=== PATIENT | female | born 1990 | race Caucasian/White ===

== ENCOUNTER 2017-06-10 19:23 | Emergency (ER) | payer BC, OTHER ==
[~2017-06-10 19:23] MED LIST: CIPR500T4 PO; LOESTAB PO; OXYB5 PO; OXYC-360 PO; PROM25SU8 PO; PYRI200T4 PO; TAMS5CAP PO
[2017-06-10] MEDS ORDERED: DICL500 PO (20:20)
--- NOTE | 2017-06-10 20:20 | PD ---
HPI Chief Complaint Right breast pain and fever 101 at home Date Seen: Jun 10, 2017 Travel History International Travel<30 Days: No Contact w/Intl Traveler<30Days: No Known Affected Area: No History of Present Illness HPI Patient is 27-year-old white female at [address] Weber's who presents complaining of of fever at home of 101, she also has had a 2 day history of the right breast pain swelling and redness. He saw Dr. Weber yesterday for this problem and the was evaluated and not treated with antibiotic at that time. Her baby is active heart rate tracing is reactive for 23 weeks and no contractions Para: 0 : 1 History Social History Alcohol Use: No Tobacco Use: No Substance Abuse: No Allergies-Medications (Allergen,Severity, Reaction): Coded Allergies: No Known Allergies (Unverified , 12/28/12) Home Meds Active Scripts Dicloxacillin 500 Mg [id number] Mg PO QID #30 CAP Ref 0 Prov:Mihai Roland II, MD 06/10/17 Oxycodone/Acetaminophen (Percocet)5 Mg/325 Mg Tab1-2 Tab PO Q4-6HPRN #20 FOR PAIN Prov:Courtney Epps MD 12/23/12 Promethazine Hcl 25 Mg Tab25 Mg PO Q6HPRN #10 FOR NAUSEA/VOMITING Prov:Courtney Epps MD 12/23/12 Reported Medications Oxybutynin Chloride (Ditropan 5 Mg Tab)5 Mg Tab5 Mg PO TID for bladder spasms 12/29/12 Phenazopyridine Hcl (Pyridium)200 Mg [id number] Mg PO TID #30 for discomfort on voiding 12/29/12 Ciprofloxacin Hcl (Cipro)500 Mg Gym530 Mg PO BID #20 12/29/12 Tamsulosin Hcl (Flomax)0.4 Mg Cap0.4 Mg PO DAILY 12/28/12 Norethin Acet & Estrad-Fe (Loestrin 24 Fe)28 Tab Pack1 Tab PO DAILY 12/17/12 Review of Systems General / Constitutional: Fever, No: Weight Gain, Chills, Other Eyes: No: Diploplia, Blurred Vision, Visual changes, Pain, Photophobia HENT: No: Headaches, Vertigo, Lightheadedness Cardiovascular: No: Irregular Rhythm, Chest Pain or Discomfort, Palpitations, Tachycardia, Syncope, Varicosities, Edema, Cyanosis Respiratory: No: Cough, Short of Breath, Other Gastrointestinal: No: Nausea, Vomiting, Diarrhea Genitourinary: No: Decreased Urinary Output, Oliguria Musculoskeletal: No: Limited ROM, Weakness, Cramping, Edema, Pain Skin: No Rash, No Itching, No Dryness, No Lumps, No Change in Pigmentation, No Change in Nails, No Alopecia, No Lesions Neurologic: No: Weakness, Dizziness, Syncope, Focal Abnormalities, Coordination Problem, Headache, Slurred Speech, Seizures Psychiatric: No: Depression, Suicidal Ideations, Homicidal Ideation Endocrine: No: Heat Intolerance, Cold Intolerance, Polydipsia, Polyuria, Other Physical Exam Narrative GENERAL: Well-nourished, well-developed patient. SKIN: Warm and dry. HEAD: Normocephalic and atraumatic. EYES: No scleral icterus. No injection or drainage. ENT: No nasal drainage noted. Mucous membranes pink. Airway patent. NECK: Supple, trachea midline. No JVD. CARDIOVASCULAR: Regular rate and rhythm without murmurs, gallops, or rubs. RESPIRATORY: Breath sounds equal bilaterally. No accessory muscle use. BREASTS: Bilateral exam showed no masses , no retractions, no nipple discharge. + erythema and tenderness of R breast , ABDOMEN/GI: Abdomen soft, non-tender, bowel sounds present, no rebound, no guarding Gravid to [-23] weeks size Fundal Height: [-23] GENITOURINARY: Membranes: [intact ] Uterine Contractions: [none-] FHT's: Category: [1-] Baseline: [-133] Reactive: [yes-] Variability: [-mod] Decels: [-none] EXTREMITIES: No cyanosis or edema. BACK: Nontender without obvious deformity. No CVA tenderness. NEUROLOGICAL: Awake and alert. Motor and sensory grossly within normal limits. Five out of 5 muscle strength in all muscle groups. Normal speech. Data Data Orders Vital Signs (Adult) .ON ADMISSION (06/10/17 19:54) ^ Labor Status (06/10/17 19:54) Urinalysis - C+S If Indicated (06/10/17 19:54) Complete Blood Count With Diff (06/10/17 19:55) MDM Interpretation(s) Patient is a 27-year-old white female at [address] Weber for care. She presents with fever at home and they will 101. She also complains of right breast pain swelling redness and on exam the right breast is swollen pink erythema around laterally and superiorly and its 1-2+ tender. No nipple discharge could be expressed, the breast is very firm dense tissue but obviously the source of infection and inflammation and this would be consistent with right breast mastitis Plan Plan to begin the patient on oral dicloxacillin 500 mg 4 times a day continue this for 7 day course and she needs to be seen Dr. Weber and brought to 48 hours to make sure she is somewhat improved. iF she is worsened spiking higher fevers she needs to come in for IV antibiotic inpatient care. Care should be taken to avoid breast abscess in a patient like this and so that type of worsening needs to also be watched for Diagnosis Diagnosis: Primary Impression: Mastitis of right breast unrelated to of Additional Impression: 23 weeks gestation of Disposition: 01 DISCHARGE HOME Condition: Stable Scripts Dicloxacillin 500 Mg Urp084 Mg PO QID #30 CAP Ref 0 Prov:Mihai Roland II, MD 06/10/17 Mihai Roland II, MD Jun 10, 2017 20:20
[2017-06-10 20:38] LABS: AUTOMATED NEUTROPHIL # 11.8 TH/MM3 (1.8-7.7); BASOPHIL % 0.2 % (0.0-2.0); EOSINOPHIL # 0.1 TH/MM3 (0-0.4); EOSINOPHIL % 0.4 % (0.0-4.0); HEMATOCRIT 28.1 % (35.0-46.0); HEMO FLAGS DIFF FINAL; LYMPH % 11.9 % (9.0-44.0); LYMPHOCYTE # 1.7 TH/MM3 (1.0-4.8); MEAN CELL VOLUME 90.3 FL (80.0-100.0); MEAN CORPUSCULAR HEMOGLOBIN 30.1 PG (27.0-34.0); MEAN CORPUSCULAR HGB CONC 33.3 % (32.0-36.0); MONO % 7.6 % (0.0-8.0); NEUT % 79.9 % (16.0-70.0); PLATELET COUNT 204 TH/MM3 (150-450); RED BLOOD COUNT 3.11 MIL/MM3 (4.00-5.30); WHITE BLOOD COUNT 14.7 TH/MM3 (4.0-11.0)
[2017-06-10 21:09] LABS: BACTERIA, URINE RARE /hpf; BLOOD, URINE NEG (NEG); COMMENT (UR) CULT NOT INDICATED; CULTURE IF INDICATED CULT NOT INDICATED; GLUCOSE,URINE NEG (NEG); KETONE, URINE NEG (NEG); NITRITE,URINE NEG (NEG); SQUAMOUS EPITHELIAL CELL URINE 2 /hpf (0-5); URINE COLOR YELLOW (YELLW/STRAW)
== END 2017-06-10 20:57 | disposition home or self-care (01) ==
LOC: HOBED 19:23
DX: N64.4 Mastodynia (principal); Z3A.23 23 weeks gestation of pregnancy
CPT/HCPCS: 36415; 81001; 85025; 99283

== ENCOUNTER 2017-08-12 11:47 | Emergency (ER) | payer OTHER ==
[~2017-08-12] VITALS: Ht 170.2 cm; Wt 76.0 kg
[~2017-08-12 11:47] MED LIST changes: +DICL500 PO
[2017-08-12 11:48] VITALS: BP 110/70; PULSE 105; RESP 20; TEMP 98.6; O2SAT 100
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
--- NOTE | 2017-08-12 14:09 | RADRPT ---
EXAM DATE/TIME: 08/12/2017 13:44 [facility] COMPARISON: No previous studies available for comparison. INDICATIONS : Short of breath, 33 weeks MEDICAL HISTORY : diagnosed with asthma 3 years ago after fume exposure. SURGICAL HISTORY : None. ENCOUNTER: Initial ACUITY: 1 day PAIN SCORE: 0/10 LOCATION: Bilateral chest FINDINGS: A single view of the chest demonstrates the lungs to be symmetrically aerated without evidence of mas s, infiltrate or effusion. The cardiomediastinal contours are unremarkable. Osseous structures are intact. CONCLUSION: No acute disease. Jonathan Hopkins MD FACR on August 12, 2017 at 14:07 Board Certified Radiologist. This report was verified electronically.
== END 2017-08-12 14:33 | disposition home or self-care (01) ==
LOC: NEPD 11:47
DX: O26.893 Other specified pregnancy related conditions, third trimester (principal); J45.909 Unspecified asthma, uncomplicated; R06.02 Shortness of breath
CPT/HCPCS: 71010; 99283

== ENCOUNTER 2017-08-13 21:13 | Emergency (ER) | payer OTHER, BC ==
[2017-08-13] VITALS (15 sets, daily range): PULSE 85–107; RESP 18
--- NOTE | 2017-08-13 22:55 | PD ---
HPI Chief Complaint sob, syncopal episode Date Seen: Aug 13, 2017 Time Seen: 22:30 Travel History International Travel<30 Days: No Contact w/Intl Traveler<30Days: No History of Present Illness HPI Pt is a 27 y/o G1 with IUP at 32.5 weeks who presents for evaluation after syncopal episode at home. Pt states she was at work yesterday and felt SOB, felt like she couldn't take a deep enough breath. Pt states this has happened before during but this episode persisted longer than normal, so she left work at came to ED. PT evaluated in main ED and had pulse ox 100%, normal vitals, and neg CXR. Pt d/c home and states her SOB has persisted but not worsened. Pt states she is measuring large for dates and thinks her SOB may be secondary to this. Pt saw Dr. Weber in office today and was prescribed an inhaler, but she has not picked up yet. She also advised to be on bedrest x 1 week. Vitals wnl in office today as well. Pt reports her mother has h/o sinus tachycardia and syncope during . This evening, pt states she was feeling well and went outside to talk with her family. She states she was standing in the yard for about 30 minutes and decided to go lie down. Pt states she went to restroom and when she got up, she felt hot. She sat down on the bed and then felt nauseated. PT's attempted to help her to the bathroom but she passed out on the way. she then vomited x 1. PT states she does not feel dizzy or nauseated now, but still feels same SOB. She thinks she may have felt some palpitations on the way to hospital but denies now. She denies chest pain. She reports mild headache currently. She denies dysuria, fever, vag bleeding, contractions. She has mild pelvic pressure. Has URI about 1-2 weeks ago, but symptoms have resolved. Weeks Gestation: 32 Para: 0 : 1 History Past Medical History Narrative Medical mastitis, nephrolithiasis Obstetric History Obstetric History G1 Past Surgical History Narrative Surgical knee surgery, lithotripsy Family History Family History: Negative Social History Alcohol Use: No Tobacco Use: No Substance Abuse: No Allergies-Medications (Allergen,Severity, Reaction): Coded Allergies: No Known Allergies (Unverified , 12/28/12) Home Meds Active Scripts Dicloxacillin (Dicloxacillin) 500 Mg Cap, 500 MG PO QID for Infection, #30 CAP 0 Refills Prov:Mihai Roland II, MD 06/10/17 Oxycodone/Acetaminophen (Percocet) 5 Mg/325 Mg Tab, 1 - 2 TAB PO Q4-6HPRN, #20 FOR PAIN Prov:Courtney Epps MD 12/23/12 Promethazine Hcl (Promethazine Hcl) 25 Mg Tab, 25 MG PO Q6HPRN, #10 FOR NAUSEA/VOMITING Prov:Courtney Epps MD 12/23/12 Reported Medications Oxybutynin Chloride (Ditropan 5 Mg Tab) 5 Mg Tab, 5 MG PO TID for bladder spasms 12/29/12 Phenazopyridine Hcl (Pyridium) 200 Mg Tab, 200 MG PO TID, #30 for discomfort on voiding 12/29/12 Ciprofloxacin Hcl (Cipro) 500 Mg Tab, 500 MG PO BID, #20 12/29/12 Tamsulosin Hcl (Flomax) 0.4 Mg Cap, 0.4 MG PO DAILY 12/28/12 Norethin Acet & Estrad-Fe (Loestrin 24 Fe) 28 Tab Pack, 1 TAB PO DAILY 12/17/12 Review of Systems General / Constitutional: No: Fever, Weight Gain, Weight Loss, Chills, Other Eyes: No: Diploplia, Blurred Vision, Visual changes, Pain, Photophobia, Other HENT: Headaches, Lightheadedness Cardiovascular: Syncope Gastrointestinal: Vomiting Genitourinary: No: Urgency, Frequency, Dysuria, Nocturia, Hematuria, Decreased Urinary Output, Oliguria, Hesitancy, Dribbling, Incontinence, Pelvic Pain, Dyspareunia, Discharge, Menorrhagia, Vaginal Bleeding, Other Musculoskeletal: No: Limited ROM, Weakness, Cramping, Edema, Pain, Other Skin: No Rash, No Itching, No Dryness, No Lumps, No Change in Pigmentation, No Change in Nails, No Alopecia, No Lesions, No Breast Lumps, No Breast Tenderness , No Breast Swelling, No Other Neurologic: Dizziness, Syncope Psychiatric: No: Anxiety, Depression, Suicidal Ideations, Disorder of Thought, Mood Disorder, Substance Abuse, Homicidal Ideation, Other Endocrine: No: Heat Intolerance, Cold Intolerance, Polydipsia, Polyuria, Other Hematologic/Lymphatic: No Easy Bruising, No Lymph Node Enlargement, No Other Physical Exam 102/69, pulse 90s, 18, 98.2, O2 sat 100% RA Narrative GENERAL: Well-nourished, well-developed patient. Not in distress SKIN: Warm and dry. HEAD: Normocephalic and atraumatic. EYES: No scleral icterus. No injection or drainage. ENT: No nasal drainage noted. Mucous membranes pink. Airway patent. NECK: Supple, trachea midline. No JVD. CARDIOVASCULAR: Regular rate and rhythm without murmurs, gallops, or rubs. RESPIRATORY: Breath sounds equal bilaterally. No accessory muscle use. ABDOMEN/GI: Abdomen soft, non-tender, bowel sounds present, no rebound, no guarding Gravid GENITOURINARY: External Genitalia: intact and normal in appearance BUS glands: [wnl] Cervix: post Dilatation: fingertip Effacement: 25 Station: high Presentation: - Membranes: intact Uterine Contractions: irregular but present (patient denies feeling contractions) FHT's: Category: 1 Baseline: 140 Reactive: yes Variability: mod Decels: no EXTREMITIES: No cyanosis or edema. BACK: Nontender without obvious deformity. No CVA tenderness. NEUROLOGICAL: Awake and alert. Motor and sensory grossly within normal limits. Five out of 5 muscle strength in all muscle groups. Normal speech. Data Data Vital Signs Reviewed: Yes Orders Orders Vital Signs (Adult) .ON ADMISSION (08/13/17 22:06) ^ Labor Status (08/13/17 22:06) ^ Non Stress Test (08/13/17 22:06) ^ Hydration (08/13/17 22:06) Basic Metabolic Panel (Bmp) (08/13/17 22:06) Electrocardiogram (08/13/17 ) Complete Blood Count With Diff (08/13/17 22:06) Electrocardiogram (08/13/17 22:35) Complete Blood Count With Diff (08/13/17 22:35) Labs Laboratory Tests Test 08/13/17 23:00 White Blood Count 12.7 TH/MM3 Red Blood Count 3.02 MIL/MM3 Hemoglobin 8.9 GM/DL Hematocrit 26.2 % Mean Corpuscular Volume 86.8 FL Mean Corpuscular Hemoglobin 29.5 PG Mean Corpuscular Hemoglobin Concent 34.0 % Red Cell Distribution Width 13.1 % Platelet Count 205 TH/MM3 Mean Platelet Volume 9.0 FL Neutrophils (%) (Auto) 78.6 % Lymphocytes (%) (Auto) 15.1 % Monocytes (%) (Auto) 5.8 % Eosinophils (%) (Auto) 0.4 % Basophils (%) (Auto) 0.1 % Neutrophils # (Auto) 9.9 TH/MM3 Lymphocytes # (Auto) 1.9 TH/MM3 Monocytes # (Auto) 0.7 TH/MM3 Eosinophils # (Auto) 0.1 TH/MM3 Basophils # (Auto) 0.0 TH/MM3 CBC Comment DIFF FINAL Differential Comment Blood Urea Nitrogen 5 MG/DL Creatinine 0.60 MG/DL Random Glucose 85 MG/DL Calcium Level 8.3 MG/DL Sodium Level 135 MEQ/L Potassium Level 3.5 MEQ/L Chloride Level 104 MEQ/L Carbon Dioxide Level 21.9 MEQ/L Anion Gap 9 MEQ/L Estimat Glomerular Filtration Rate 122 ML/MIN EKG--NSR urine dipstick: glucose neg, bili small, ket small, SG 1.02, blood neg, pH 7.5 , protein 1+, nitrite neg, leuk trace MDM Medical Record Reviewed: Yes Narrative Course / MDM 27 y/o G1 with IUP at 32.5 weeks 1. SOB --pt in NAD, normal O2 sats, normal vital signs including resp rate, normal heart/lung exam; suspect physiologic dyspnea of --mild-mod anemia possibly contributory 2. syncopal episode --likely secondary to physiologic changes, orthostatic hypotension --check EKG--normal sinus rhythm --check CBC and lytes (Hgb 8.9, o/w wnl) 3. contractions --unable to check FFN secondary to intercourse within past 24 hrs --po hydrate and continue to monitor contractions --repeat cervical exam unchanged Plan d/c home, call OB office in am for follow-up Diagnosis Diagnosis: Primary Impression: Syncopal episodes Additional Impression: 32 weeks gestation of Disposition: 01 DISCHARGE HOME Condition: Stable Patient Instructions: Movement (ED), Labor (ED), General Instructions Louie Dawn MD Aug 13, 2017 22:55
[2017-08-13 23:24] LABS: AUTOMATED NEUTROPHIL # 9.9 TH/MM3 (1.8-7.7); BASOPHIL % 0.1 % (0.0-2.0); EOSINOPHIL # 0.1 TH/MM3 (0-0.4); EOSINOPHIL % 0.4 % (0.0-4.0); HEMATOCRIT 26.2 % (35.0-46.0); HEMO FLAGS DIFF FINAL; LYMPH % 15.1 % (9.0-44.0); LYMPHOCYTE # 1.9 TH/MM3 (1.0-4.8); MEAN CELL VOLUME 86.8 FL (80.0-100.0); MEAN CORPUSCULAR HEMOGLOBIN 29.5 PG (27.0-34.0); MONO % 5.8 % (0.0-8.0); NEUT % 78.6 % (16.0-70.0); PLATELET COUNT 205 TH/MM3 (150-450); RED BLOOD COUNT 3.02 MIL/MM3 (4.00-5.30); RED CELL DISTRIBUTION WIDTH 13.1 % (11.6-17.2); WHITE BLOOD COUNT 12.7 TH/MM3 (4.0-11.0)
[2017-08-13 23:40] LABS: BICARBONATE 21.9 MEQ/L (21.0-32.0); POTASSIUM 3.5 MEQ/L (3.5-5.1)
[2017-08-14] VITALS: PULSE 89; RESP 18
--- NOTE | 2017-08-14 21:25 | EKG ---
Date Performed: 08/13/2017 Time Performed: 22:45:59 PTAGE: 27 years EKG: Sinus rhythm NORMAL ECG NO PREVIOUS TRACING DOCTOR: Shaun De Leon Interpretating Date/Time 08/14/2017 21:24:26
== END 2017-08-14 00:27 | disposition home or self-care (01) ==
LOC: HOBED 21:13
DX: O26.893 Other specified pregnancy related conditions, third trimester (principal); R55 Syncope and collapse; R06.02 Shortness of breath; Z3A.32 32 weeks gestation of pregnancy
CPT/HCPCS: 36415; 80048; 85025; 93005; 99284

== ENCOUNTER 2017-09-02 15:28 | Emergency (ER) | payer OTHER, BC ==
--- NOTE | 2017-09-02 16:20 | PD ---
HPI Chief Complaint Pelvic pain, feels like the baby is coming out Date Seen: Sep 02, 2017 Time Seen: 16:00 Travel History International Travel<30 Days: No Contact w/Intl Traveler<30Days: No Known Affected Area: No History of Present Illness HPI Patient is a 27-year-old at 35 weeks and 4 days who presents with complaint of pelvic pain and pressure, and feeling that the baby is coming out. She follows with Dr. Weber. She denies any vaginal bleeding, leakage of fluid, contractions. She reports movement at baseline. History Past Medical History Narrative Medical mastitis x2 Iron deficiency anemia Obstetric History Obstetric History This is her first . This has been complicated by mastitis twice, requiring 2 separate courses of antibiotics Patient also required IV iron transfusion for iron deficiency anemia this . Past Surgical History Narrative Surgical left knee surgery Family History Narrative Family History Patient's mother has a history of -induced sinus tachycardia Social History Narrative Social History Patient lives at home with her . Alcohol Use: No Tobacco Use: No Substance Abuse: No Allergies-Medications (Allergen,Severity, Reaction): Coded Allergies: No Known Allergies (Unverified , 12/28/12) Home Meds Active Scripts Dicloxacillin (Dicloxacillin) 500 Mg Cap, 500 MG PO QID for Infection, #30 CAP 0 Refills Prov:Mihai Roland II, MD 06/10/17 Oxycodone/Acetaminophen (Percocet) 5 Mg/325 Mg Tab, 1 - 2 TAB PO Q4-6HPRN, #20 FOR PAIN Prov:Courtney Epps MD 12/23/12 Promethazine Hcl (Promethazine Hcl) 25 Mg Tab, 25 MG PO Q6HPRN, #10 FOR NAUSEA/VOMITING Prov:Courtney Epps MD 12/23/12 Reported Medications Oxybutynin Chloride (Ditropan 5 Mg Tab) 5 Mg Tab, 5 MG PO TID for bladder spasms 12/29/12 Phenazopyridine Hcl (Pyridium) 200 Mg Tab, 200 MG PO TID, #30 for discomfort on voiding 12/29/12 Ciprofloxacin Hcl (Cipro) 500 Mg Tab, 500 MG PO BID, #20 12/29/12 Tamsulosin Hcl (Flomax) 0.4 Mg Cap, 0.4 MG PO DAILY 12/28/12 Norethin Acet & Estrad-Fe (Loestrin 24 Fe) 28 Tab Pack, 1 TAB PO DAILY 12/17/12 Review of Systems General / Constitutional: No: Fever, Chills Eyes: No: Visual changes HENT: No: Headaches Cardiovascular: No: Chest Pain or Discomfort Respiratory: No: Short of Breath Gastrointestinal: No: Nausea, Abdominal Pain Genitourinary: No: Dysuria Musculoskeletal: Pain (pelvic) Physical Exam Blood pressure 112/72, pulse 102, respiratory rate 17, temperature 98.7 Narrative GENERAL: Well-nourished, well-developed patient. SKIN: Warm and dry. HEAD: Normocephalic and atraumatic. EYES: No scleral icterus. No injection or drainage. ENT: No nasal drainage noted. Mucous membranes pink. Airway patent. NECK: Supple, trachea midline. No JVD. CARDIOVASCULAR: Tachycardic rate and regular rhythm without murmurs, gallops, or rubs. RESPIRATORY: Breath sounds equal bilaterally. No accessory muscle use. ABDOMEN/GI: Abdomen soft, non-tender, bowel sounds present, no rebound, no guarding Gravid to 35 weeks size GENITOURINARY: External Genitalia: intact and normal in appearance Cervix: Posterior Dilatation: 1 Centimeter Effacement: Thick Station: Long Membranes: [intact] Uterine Contractions: None FHT's: Category: Category 1 Baseline: Initially, 145, now 135 Reactive: no Variability: Moderate Decels: None EXTREMITIES: No cyanosis or edema. BACK: Nontender without obvious deformity. No CVA tenderness. NEUROLOGICAL: Awake and alert. Motor and sensory grossly within normal limits. Five out of 5 muscle strength in all muscle groups. Normal speech. Data Data Vital Signs Reviewed: Yes MDM Plan Patient is a 27-year-old at 35 weeks and 4 days who presents with complaint of pelvic pain and pressure, and feeling that the baby is coming out. Cervical exam is 1 cm, thick, long. 1. Pelvic pain - no contractions, no significant cervical dilation or change, labor is effectively ruled out. -Urine dipstick -Monitor vital signs -Monitor heart tracing -Monitor labor status/tocometry 2. FHT not reactive initially -will continue to monitor until FHT is reactive and reassuring d/w Dr. Bethea Addendum: Patient's heart tracing has some accelerations, is now reactive , and reassuring. Urine dipstick showed small leukocyte esterase, otherwise unremarkable. No signs of infection. Plan to discharge home. Diagnosis Diagnosis: Primary Impression: Pelvic pain affecting in third trimester, antepartum Additional Impression: 35 weeks gestation of Ruled Out: labor in third trimester Disposition: 01 DISCHARGE HOME Condition: Quincy Amaya MD R2 Sep 02, 2017 16:20
[2017-09-02 17:10] LABS: BLOOD, URINE NEG (NEG); COMMENT (UR) CULT NOT INDICATED; CULTURE IF INDICATED CULT NOT INDICATED; GLUCOSE,URINE NEG (NEG); KETONE, URINE NEG (NEG); NITRITE,URINE NEG (NEG); SQUAMOUS EPITHELIAL CELL URINE 3 /hpf (0-5); URINE COLOR YELLOW (YELLW/STRAW)
== END 2017-09-02 17:17 | disposition home or self-care (01) ==
LOC: HOBED 15:28
DX: O26.893 Other specified pregnancy related conditions, third trimester (principal); R10.2 Pelvic and perineal pain; Z86.2 Personal history of diseases of the blood and blood-forming organs and certain disorders involving the immune mechanism; Z87.2 Personal history of diseases of the skin and subcutaneous tissue; Z3A.35 35 weeks gestation of pregnancy
CPT/HCPCS: 59025; 81001

== ENCOUNTER 2017-09-28 14:31 | Inpatient (IN) | payer OTHER, BC ==
[2017-09-28] VITALS (32 sets, daily range): BP systolic 92–164; BP diastolic 40–113; PULSE 79–128; RESP 18–20; TEMP 98.2–98.9
[~2017-09-28] VITALS: Ht 170.2 cm; Wt 80.0 kg
[2017-09-28] MEDS ORDERED: PREN29TA PO (15:09)
[2017-09-28] MEDS ORDERED: ALBUAER3 INH (16:00)
[2017-09-28] MEDS ORDERED: LACTATED RINGER'S 1000 ML INJ 1,000 ML IV PRN (16:21)
[2017-09-28] MEDS ORDERED: MINERAL OIL 10 ML VIAL TOPICAL PRN (16:30)
[2017-09-28] MEDS ORDERED: SODIUM CHLORID 0.9% 500 ML INJ 500 ML IV PRN (16:30)
[2017-09-28] MEDS ORDERED: CITRIC ACID-SODIUM CITRATE LIQ 30 ML UDC PO SCH (16:30)
[2017-09-28] MEDS ORDERED: OXYTOCIN 30 UNITS-500ML PREMIX 500 ML IV ONE (16:30)
[2017-09-28] MEDS ORDERED: OXYTOCIN 30 UNITS-500ML PREMIX 500 ML IV SCH (16:30)
[2017-09-28] MEDS ORDERED: LIDOCAINE HCL 1% 50 ML VIAL INFIL PRN (16:30)
[2017-09-28] MEDS ORDERED: LIDOCAINE HCL 1% 50 ML VIAL I-DERMAL PRN (16:30)
[2017-09-28 16:34] LABS: BLOOD, URINE SMALL (NEG); GLUCOSE,URINE NEG (NEG); KETONE, URINE NEG (NEG); NITRITE,URINE NEG (NEG); PH, URINE 7.5 (5.0-8.5); SQUAMOUS EPITHELIAL CELL URINE 3 /hpf (0-5); URINE COLOR LIGHT-YELLOW (YELLW/STRAW)
[2017-09-28 16:35] LABS: AUTOMATED NEUTROPHIL # 4.6 TH/MM3 (1.8-7.7); BASOPHIL % 0.3 % (0.0-2.0); COMMENT (UR) CULT NOT INDICATED; CULTURE IF INDICATED CULT NOT INDICATED; EOSINOPHIL # 0.1 TH/MM3 (0-0.4); EOSINOPHIL % 1.6 % (0.0-4.0); HEMATOCRIT 28.9 % (35.0-46.0); HEMO FLAGS DIFF FINAL; LYMPH % 24.9 % (9.0-44.0); LYMPHOCYTE # 1.7 TH/MM3 (1.0-4.8); MEAN CELL VOLUME 86.8 FL (80.0-100.0); MEAN CORPUSCULAR HGB CONC 34.6 % (32.0-36.0); MONO % 7.1 % (0.0-8.0); NEUT % 66.1 % (16.0-70.0); PLATELET COUNT 179 TH/MM3 (150-450); RED BLOOD COUNT 3.33 MIL/MM3 (4.00-5.30); RED CELL DISTRIBUTION WIDTH 15.1 % (11.6-17.2)
[2017-09-28] MEDS ORDERED: SODIUM CHLOR 0.9% 1000 ML INJ 1,000 ML IV PRN (16:41)
[2017-09-28] MEDS: LACTATED RINGER'S 1000 ML INJ 1,000 ML IV SCH ×2 (16:49→21:27)
[2017-09-28] MEDS ORDERED: PENICILLIN G POTASSIUM INJ 5,000,000 UNITS in SODIUM CHLORIDE 0.9% INJ 100 ML IV ONE (17:00)
[2017-09-28] MEDS ORDERED: OXYTOCIN 30 UNITS/NS 500ML PREMIX IV SCH (18:45)
[2017-09-28] MEDS ORDERED: fentaNYL 2MCG-BUPIV 0.125% INJ 100 ML ONE (20:58)
[2017-09-28] MEDS: PENICILLIN G POTASSIUM INJ 2,500,000 UNITS in SODIUM CHLORIDE 0.9% INJ 100 ML IV SCH (21:27)
[2017-09-28] MEDS ORDERED: ePHEDrine/NS 25 MG/5 ML SYR ONE (22:17)
[2017-09-29] VITALS (34 sets, daily range): BP systolic 94–132; BP diastolic 44–111; PULSE 89–293; RESP 18; TEMP 98.2–99.5
[2017-09-29] MEDS: PENICILLIN G POTASSIUM INJ 2,500,000 UNITS in SODIUM CHLORIDE 0.9% INJ 100 ML IV SCH (01:00)
[2017-09-29] MEDS ORDERED: DO NOT ADMINISTER ANTICOAGULANTS PRN (02:30)
[2017-09-29] MEDS ORDERED: fentaNYL 2MCG-BUPIV 0.125% 100 ML EPIDURAL SCH (02:30)
[2017-09-29] MEDS ORDERED: NO SYSTEM NARCOTICS PRN (02:30)
[2017-09-29] MEDS ORDERED: ePHEDrine/NS 25 MG/5 ML SYR IV PUSH PRN (02:30)
--- NOTE | 2017-09-29 04:31 | PD.OB.DELI ---
Weeks gestation: 39 Gest age assessed date: Sep 28, 2017 Gest age assessed time: 09:00 Pt started active labor?: Yes Active labor start date: Sep 28, 2017 Active labor start time: 16:30 Medical induction of labor?: Yes Medical induction start date: Sep 28, 2017 Medical induction start time: 14:00 Artificial rupture of membrane: Yes Artificial ROM date: Sep 28, 2017 Artifical ROM time: 16:30 Anesthesia: Epidural Episiotomy: None Presentation: Other (occiput transverse) Nuchal Cord: x1 Delayed cord clamping (45 sec): Yes Infant: Female, Single Delivery date: Sep 29, 2017 Delivery time: 04:30 One Minute : 8 Five Minute : 9 Weight: 7 Placenta: Spontaneous delivery Laceration: 2 deg Repair: Chromic running Estimated blood loss: 500 Additional Information vacuum applied at +3 and baby delivered over single contraction with three pulls Tiffany Weber MD Sep 29, 2017 04:31
--- NOTE | 2017-09-29 04:33 | HHI.DCPOC ---
Discharge Care Plan Report Symptoms to Your Doctor -Temperature above 100.5 degrees -Redness, of incision or excessive or foul smelling drainage -Unusual pain or calf pain -Increased vaginal bleeding -Painful or difficulty urinating -Feelings of extreme sadness or anxiety after 2 weeks Goals to Promote Your Health * To prevent worsening of your condition and complications * To maintain your health at the optimal level Directions to Meet Your Goals Take your medications as prescribed Follow your dietary instruction Follow activity as directed Ensure plenty of rest for recovery Drink fluids for hydration Keep your appointments as scheduled Take your immunizations and boosters as scheduled If your symptoms worsen call your PCP, if no PCP go to Urgent Care Center or Emergency Room Smoking is Dangerous to Your Health. Avoid second hand smoke Call the 24-hour crisis hotline for domestic abuse at Tiffany Weber MD Sep 29, 2017 04:33
[2017-09-29] MEDS ORDERED: ONDANSETRON ODT 4 MG TAB PO PRN (04:45)
[2017-09-29] MEDS ORDERED: ZOLPIDEM TARTRATE 5 MG TAB PO PRN (04:45)
[2017-09-29] MEDS ORDERED: BENZOCAINE 20% TOPICAL SPRAY 60 ML CAN TOPICAL PRN (04:45)
[2017-09-29] MEDS ORDERED: WITCH HAZEL 50%/GLYCERIN 12.5% 40 PAD JAR TOPICAL PRN (04:45)
[2017-09-29] MEDS ORDERED: DOCUSATE SODIUM 50 MG/SENNA 8.6 MG TAB PO PRN (04:45)
[2017-09-29] MEDS ORDERED: OXYTOCIN 30 UNITS-500ML PREMIX 500 ML IV SCH (04:45)
[2017-09-29] MEDS ORDERED: ALUMINUM/MAGNESIUM/SIMETH 30 ML CUP PO PRN (04:45)
[2017-09-29] MEDS ORDERED: IBUPROFEN 800 MG TAB PO PRN (04:45)
[2017-09-29] MEDS ORDERED: SODIUM CHLORIDE 0.9% FLUSH 10 ML FLUSH IV FLUSH PRN (04:45)
[2017-09-29] MEDS: ACETAMINOPHEN 325 MG TAB PO PRN ×2 (08:49→21:17)
[2017-09-29] MEDS ORDERED: SODIUM CHLORIDE 0.9% FLUSH 10 ML FLUSH IV FLUSH SCH (09:00)
[2017-09-29] MEDS ORDERED: MEASLES, MUMPS, RUBELLA VACCINE 0.5 ML VIAL SQ ONE (16:00)
[2017-09-29] MEDS ORDERED: DIPHTH/TETANUS/ACEL PERTUSSIS (BOOSTER) 0.5 ML VIAL/PFS IM ONE (16:00)
--- NOTE | 2017-09-30 11:38 | HHI.OB ---
Subjective Post Day: 1 Remarks PPD#!, s/p vacuum asst. del. GBS+; Is doing well.discussed discharge later today IF cleared by infant cleared by PEDs Objective Objective Remarks GENERAL: Well-nourished, well-developed patient. CARDIOVASCULAR: Regular rate and rhythm without murmurs, gallops, or rubs. RESPIRATORY: Breath sounds equal bilaterally. No accessory muscle use. ABDOMEN/GI: Abdomen soft, non-tender. Fundus: Firm, non-tender at umbilicus. GENITOURINARY: Light to moderate bleeding. EXTREMITIES: No cyanosis or edema, non-tender, without signs of DVT. Medications and IVs Current Medications Medications (Trade) Dose Ordered Sig/Grant Route Start Time Stop Time Status Last Admin (NS Flush) 2 ml BID IV FLUSH 09/29/17 09:00 (NS Flush) 2 ml UNSCH PRN IV FLUSH 09/29/17 04:45 (Tylenol) 650 mg Q4H PRN PO 09/29/17 04:45 09/29/17 21:17 (Motrin) 800 mg Q8H PRN PO 09/29/17 04:45 (Americaine 20% Top Spr) 1 spray Q4H PRN TOPICAL 09/29/17 04:45 09/29/17 08:48 (Tucks Pads) 1 applic QID PRN TOPICAL 09/29/17 04:45 09/29/17 08:48 (Angelia-Colace) 2 tab Q12H PRN PO 09/29/17 04:45 (Ambien) 5 mg HS PRN PO 09/29/17 04:45 (Mag-Al Plus Susp Liq) 15 ml Q8H PRN PO 09/29/17 04:45 (Zofran Odt) 4 mg Q6H PRN PO 09/29/17 04:45 Assessment/Plan Assessment and Plan PPD#!, stable, discussed d/c today if PEDs clears infant ,GBS+. Discharge Planning Routine Attending Attestation seen by Tony La MD Sep 30, 2017 11:38
[2017-09-30 21:00] VITALS: BP 109/74; PULSE 100; RESP 16; TEMP 98.2
[2017-10-01 08:00] VITALS: BP 101/78; PULSE 91; RESP 20; TEMP 98
[2017-10-01] MEDS ORDERED: IBUP1TAB7 PO (09:03)
--- NOTE | 2017-10-01 09:04 | HHI.OB ---
Subjective Post Day: 2 Objective Vitals/I&O Vital Signs Date Time Temp Pulse Resp B/P (MAP) Pulse Ox O2 Delivery O2 Flow Rate FiO2 09/30/17 21:00 98.2 100 16 109/74 (86) Objective Remarks GENERAL: Well-nourished, well-developed patient. CARDIOVASCULAR: Regular rate and rhythm without murmurs, gallops, or rubs. RESPIRATORY: Breath sounds equal bilaterally. No accessory muscle use. ABDOMEN/GI: Abdomen soft, non-tender. Fundus: Firm, non-tender at umbilicus. GENITOURINARY: Light to moderate bleeding. EXTREMITIES: No cyanosis or edema, non-tender, without signs of DVT. Medications and IVs Current Medications Medications (Trade) Dose Ordered Sig/Grant Route Start Time Stop Time Status Last Admin (NS Flush) 2 ml BID IV FLUSH 09/29/17 09:00 (NS Flush) 2 ml UNSCH PRN IV FLUSH 09/29/17 04:45 (Tylenol) 650 mg Q4H PRN PO 09/29/17 04:45 09/29/17 21:17 (Motrin) 800 mg Q8H PRN PO 09/29/17 04:45 (Americaine 20% Top Spr) 1 spray Q4H PRN TOPICAL 09/29/17 04:45 09/29/17 08:48 (Tucks Pads) 1 applic QID PRN TOPICAL 09/29/17 04:45 09/29/17 08:48 (Angelia-Colace) 2 tab Q12H PRN PO 09/29/17 04:45 (Ambien) 5 mg HS PRN PO 09/29/17 04:45 (Mag-Al Plus Susp Liq) 15 ml Q8H PRN PO 09/29/17 04:45 (Zofran Odt) 4 mg Q6H PRN PO 09/29/17 04:45 Assessment/Plan Assessment and Plan PPD#2, stable routine pp care, d/c today. Discharge Planning Routine Erinn Boyd MD Oct 01, 2017 09:04
== END 2017-10-01 09:43 | disposition home or self-care (01) | DRG 775 ==
LOC: H2EA 14:31 → H1EA 09-29 08:35
PROVIDERS: ADMIT Obstetrics & Gynecology; ATTEND Obstetrics & Gynecology
PROC: 10907ZC Drainage of Amniotic Fluid, Therapeutic from Products of Conception, Via Natural or Artificial Opening (ICD-10-PCS; 2017-09-28)
PROC: 3E0R3BZ Introduction of Anesthetic Agent into Spinal Canal, Percutaneous Approach (ICD-10-PCS; 2017-09-28)
PROC: 00HU33Z Insertion of Infusion Device into Spinal Canal, Percutaneous Approach (ICD-10-PCS; 2017-09-28)
PROC: 10D07Z6 Extraction of Products of Conception, Vacuum, Via Natural or Artificial Opening (ICD-10-PCS; principal; 2017-09-29)
PROC: 0KQM0ZZ Repair Perineum Muscle, Open Approach (ICD-10-PCS; 2017-09-29)
DX: O75.9 Complication of labor and delivery, unspecified (principal); O99.824 Streptococcus B carrier state complicating childbirth; O70.1 Second degree perineal laceration during delivery; O69.81X0 Labor and delivery complicated by cord around neck, without compression, not applicable or unspecified; Z37.0 Single live birth; Z3A.39 39 weeks gestation of pregnancy
CPT/HCPCS: 59025; 80307; 81001; 85025; 86900; 86901; J2540; J2590; J3010; J7120